=== PATIENT | female | born 1985 | race American Indian/Alaskan Native ===

== ENCOUNTER 2018-04-27 09:45 | Emergency (ER) | payer MEDICAID | END 2018-04-27 12:15 | disposition left against medical advice (07) | LOC: ED 09:45 ==

== ENCOUNTER 2019-05-20 10:11 | Outpatient (CLI) | payer MEDICAID ==
[2019-05-20 11:39] VITALS: BP 115/64
[2019-05-20] MEDS ORDERED: LACTATED RINGERS 500 ML IV ONE (11:51)
== END 2019-05-20 11:50 | disposition home or self-care (01) ==
LOC: TRG 10:11
PROVIDERS: ATTEND Obstetrics & Gynecology
DX: O80 Encounter for full-term uncomplicated delivery (principal); Z3A.31 31 weeks gestation of pregnancy
CPT/HCPCS: 59025